=== PATIENT | male | born 1990 | race Two or more races ===

== ENCOUNTER 2021-05-28 10:25 | Emergency (ER) | payer BC ==
[~2021-05-28] VITALS: Ht 180.3 cm; Wt 83.9 kg
--- NOTE | 2021-05-28 10:25 | NUR ---
PT BIB FRIEND C/O LOCK JAW WHILE EATING 10 MIN T[employer] HOUSE [employer]PER[employer]. PT IS AAOX4, NOT IN RESPIRATORY DISTRESS, V/S STABLE, KEPT RESTED AND COMFORTABLE. WILL CONTINUE TO MONITOR.
[2021-05-28] MEDS ORDERED: ETOMIDATE 2 MG/ML VIAL ONE (10:43)
--- NOTE | 2021-05-28 10:43 | NUR ---
seen and examined by .
--- NOTE | 2021-05-28 10:47 | NUR ---
ZOFRAN 4MG IVP GIVEN VERBAL ORDERED BY .
[2021-05-28] MEDS ORDERED: ONDANSETRON HCL/PF 4 MG/2 ML VIAL ONE (10:55)
[2021-05-28] MEDS ORDERED: PROPOFOL 20 ML IV ONE (11:18)
[2021-05-28] MEDS ORDERED: PROPOFOL 200 MG/20 ML VIAL IV ONE ×2 (11:30→12:30)
[2021-05-28] MEDS ORDERED: ETOMIDATE 2 MG/ML VIAL IV ONE (11:30)
--- NOTE | 2021-05-28 11:40 | NUR ---
PT IS AWAKE, VERBALLY RESPONSIVE, ON THE MONITOR WITH STABLE VITALS, OT SAT 100%. 1127: JAW REDUCTION PROCEDURE BY DR JULES, RESPIRATORY THERAPIST, RN AT BEDSIDE 1128: 40 MG PROPOFOL GIVEN, PT STILL AWAKE 1129: 20 MG PROPOFOL GIVEN, PT STILL AWAKE 1131: 40 MG PROPOFOL GIVEN, PT STILL AWAKE 1133: 20 MG PROPOFOL GIVEN, PT STILL AWAKE 1135: 20 MG PROPOFOL GIVEN TOTAL PROPOFOL GIVEN: 140 MG
--- NOTE | 2021-05-28 12:12 | NUR ---
Patient discharged to home in stable condition. Written and verbal after care instructions given. Patient verbalizes understanding of instruction. IV removed. Catheter intact and site benign. Pressure and 4x4 applied to site. No bleeding noted.
--- NOTE | 2021-05-28 12:12 | NUR ---
IV removed. Catheter intact and site benign. Pressure and 4x4 applied to site. No bleeding noted.
[2021-05-28 12:13] VITALS: BP 125/73
== END 2021-05-28 12:13 | disposition home or self-care (01) ==
LOC: ER 10:29
DX: S03.03XA Dislocation of jaw, bilateral, initial encounter (principal); X58.XXXA Exposure to other specified factors, initial encounter; Y93.89 Activity, other specified; Y92.89 Other specified places as the place of occurrence of the external cause; Y99.8 Other external cause status
CPT/HCPCS: 21480; 99152; 99285; J2405; J2704; J3490; J7030; G0500